=== PATIENT | female | born 1965 | race Caucasian/White ===

== ENCOUNTER 2017-10-02 19:30 | Emergency (ER) | payer OTHER ==
[~2017-10-02] VITALS: Ht 157.5 cm; Wt 83.1 kg
[~2017-10-02 19:30] MED LIST: CALCTAB5 PO; CHOLTAB3 PO; CRTOTS OP; SERT-234 PO
[2017-10-02 19:32] VITALS: TEMP 36.4; Ht 157.5 cm; Wt 83.1 kg
[2017-10-02] MEDS ORDERED: ASPI81TA28 PO (19:39)
--- NOTE | 2017-10-02 20:21 | DIAGNOSTIC IMAGING REPORT ---
L FOREARM 2 VIEWS ROUTINE CLINICAL HISTORY: LEFT, CRUSH INJURY L FOREARM COMPARISON: None FINDINGS: There is no acute fracture of the left radius or ulna. Lateral view demonstrates significant soft tissue swelling of the dorsal aspect of the mid to distal left forearm. IMPRESSION: 1. No acute fracture of the left radius or ulna. 2. Significant soft tissue swelling of the dorsal distal left forearm which suggests a hematoma/contusion. Electronically signed by: Ananda Taylor M.D. 10/02/2017 8:20 PM Dictated Date/Time: 10/02/2017 8:17 PM
--- NOTE | 2017-10-02 20:33 | EMERGENCY ROOM VISIT NOTE ---
ED Visit Note First contact with patient: 19:35 CHIEF COMPLAINT: Left forearm injury 4 hours ago HISTORY OF PRESENT ILLNESS: Patient is a [id number] 51-year-old white female who presents to the emergency department for evaluation of left forearm pain. About 4 hours ago she was helping to move some furniture. She got the right forearm pinched between a door frame and a couch. She states that at the time of the injury and felt like her skin was pinched by the movement. She continued to move a couple more pieces of furniture. She then removed her coat , and noticed soft tissue swelling in the dorsum of her wrist where it was pinched. As the evening has gone on, she has had worsening swelling. It is spreading down into her hands. She also has swelling on the palmar aspect of the wrist. She rates her pain a 10/10. She states the pain radiates slightly up the forearm when she has it elevated. She went to an urgent care center in [place], but reports that it was almost time for the office to close. They gave her an ice pack and referred her here for evaluation. The practitioner mentioned concern regarding compartment syndrome. The patient denies any numbness, tingling or weakness into her hand, fingers or forearm. She denies feeling a crack or pop at the time of the injury. She does take a baby aspirin daily. REVIEW OF SYSTEMS: Review of systems as per HPI. All other systems reviewed were negative. 10 systems reviewed. PMH: Electronic medical records are reviewed and summarized as above/below. See Problem List. SOCIAL HISTORY: Patient lives at home with her . She is not employed. Smokes one pack of cigarettes daily. PHYSICAL EXAM: Vital Signs: Reviewed Nurse's notes. CONSTITUTIONAL: Patient is a well-appearing 51-year-old white female who is awake and alert and in no acute distress. MUSCULOSKELETAL: Examination of the right forearm notes a very tiny abrasion on the dorsal aspect of the mid forearm. The patient has moderate soft tissue swelling noted in both the dorsum and volar aspect of the right forearm, proximal to the wrist. She is mildly tender there. There is no bony tenderness over the wrist or the elbow. She has full hand, elbow and wrist range of motion. Sensation to light touch is intact over the entire left upper extremity. Radial and ulnar pulses are easily appreciated. Capillary refill is less than 2 seconds. There is swelling and tenderness of the mid-forearm. There is no deformity of the distal forearm. The skin is intact. EMERGENCY DEPARTMENT COURSE: The patient was seen and evaluated as above. X- rays of the left forearm were obtained and negative for acute fracture or bony abnormality. Patient has suffered a crush injury to the left forearm. She does not have any physical exam findings that are concerning for a compartment syndrome at this time. Certainly she appears to have a moderate soft tissue injury however, contusion/hematoma was discussed with her. She was wrapped with an Ben wrap. She was encouraged to rest, ice and elevate the arm. She was educated on signs and symptoms of compartment syndrome for which she should seek immediate medical attention. Differential diagnoses also entertained included fracture, contusion, laceration, hematoma, among others. The patient was discharged home in good condition. She was offered medication for discomfort, but declined. She rated her pain an 8/10 at discharge. Medication reconciliation: I attest that I have personally reviewed the patient' s current medication list. Blood pressure screening: Patient was found to have a slightly elevated blood pressure due to circumstances. I do not believe that the patient requires hypertension monitoring. L FOREARM 2 VIEWS ROUTINE CLINICAL HISTORY: LEFT, CRUSH INJURY L FOREARM COMPARISON: None FINDINGS: There is no acute fracture of the left radius or ulna. Lateral view demonstrates significant soft tissue swelling of the dorsal aspect of the mid to distal left forearm. IMPRESSION: 1. No acute fracture of the left radius or ulna. 2. Significant soft tissue swelling of the dorsal distal left forearm which suggests a hematoma/contusion. Problem List Medical Problems: (1) Anxiety and depression Status: Chronic Surgical Problems: (1) History of cholecystectomy Status: Resolved (2) History of hysterectomy Status: Resolved Current/Historical Medications Scheduled Aspirin (Aspirin Ec), 81 MG PO DAILY Sertraline (Zoloft), 100 MG PO DAILY Allergies Coded Allergies: No Known Allergies (Verified , 03/22/11) Vital Signs Date Time Temp Pulse Resp B/P (MAP) Pulse Ox O2 Delivery O2 Flow Rate FiO2 10/02/17 20:39 74 18 139/91 96 Room Air 10/02/17 19:32 36.4 81 20 166/86 99 Room Air Departure Information Impression Primary Impression: Contusion of left forearm Referrals Alan Evans M.D. (PCP) Patient Instructions My [facility] Additional Instructions Ibuprofen(Motrin, Advil) may be used for fever or pain. Use 600mg every six hours as needed. Take with food. Avoid using more than 2400mg in a 24 hour period. Do not use 2400mg per day for more than three consecutive days without physician direction. Prolonged inappropriate use can lead to stomach upset or ulcers. This medication can be taken if you need to drive, work, or perform activities which may be dangerous when taking narcotic pain medication. (AND/OR) Acetaminophen(Tylenol) may be used for fever or pain. Use 1000mg every six hours as needed. Avoid using more than 3000mg in a 24 hour period. This medication can be taken if you need to drive, work, or perform activities which may be dangerous when taking narcotic pain medication. Ice compresses for 20 minutes at a time four times daily for 2-3 days. Rest and elevate your injury. Elevate your arm above the level of your heart, keeping your hand above the elbow. If your ben wrap feels excessively tight, you have worsening pain, develop numbness or tingling, or your digits appear blue, loosen the ben wrap. Then reapply the ben wrap gently. If your symptoms are not quickly relieved return to the ER for re-evaluation. Continue current medications. Return to the ER immediately for any numbness, tingling, severe pain, extreme swelling in the extremity or as needed. Follow-up with your primary care physician next week.
[2017-10-02 20:39] VITALS: BP 139/91; PULSE 74; O2SAT 96
== END 2017-10-02 20:40 | disposition home or self-care (01) ==
LOC: C.EDB 19:31 → C.EDD 20:40
DX: S50.12XA Contusion of left forearm, initial encounter (principal); W23.1XXA Caught, crushed, jammed, or pinched between stationary objects, initial encounter; Y92.89 Other specified places as the place of occurrence of the external cause